=== PATIENT | female | born 1955 | race Asian ===

== ENCOUNTER 2020-08-10 13:35 | Outpatient (CLI) | payer OTHER | END 2020-08-10 20:49 | disposition home or self-care (01) | LOC: NM 13:35 | PROVIDERS: ATTEND Internal Medicine | DX: R10.11 Right upper quadrant pain (principal); R11.2 Nausea with vomiting, unspecified; K21.9 Gastro-esophageal reflux disease without esophagitis | CPT/HCPCS: A9537 ==

== ENCOUNTER 2021-02-25 10:58 | Outpatient (CLI) | payer OTHER ==
[2021-02-25 11:49] LABS: POTASSIUM 3.7 mmol/L (3.6-5.2)
== END 2021-02-25 19:06 | disposition home or self-care (01) ==
LOC: LABW 10:58
PROVIDERS: ATTEND Psychiatry & Neurology Neurology
DX: Z79.899 Other long term (current) drug therapy (principal); R20.1 Hypoesthesia of skin
CPT/HCPCS: 36415; 80053; 82175; 82607; 84436; 84443; 85652; 86038; 86334